=== PATIENT | female | born 1975 | race Asian ===

== ENCOUNTER 2018-10-11 19:50 | Inpatient (IN) | payer MEDICARE ==
[~2018-10-11] VITALS: Ht 162.6 cm; Wt 51.0 kg
--- NOTE | 2018-10-11 20:04 | NUR ---
PT IN BR AT THIS TIME.
--- NOTE | 2018-10-11 20:12 | NUR ---
PT [place] IS FROM [place]. STATES SHE WAS SEEN IN THE ED IN [place] TODAY AND WAS DISCHARGED BUT THEN THE VOICES IN HER HEAD GOT WORSE. CALM, PLEASANT AT THIS TIME. ERP WAS IN TO SEE PT, POC RV'WD WITH HER. WARM BLANKET PROVIDED.
--- NOTE | 2018-10-11 20:21 | NUR ---
LABS DRAWN, URINE SENT. BIBLE PROVIDED TO PT PER HER REQUEST.
[2018-10-11 20:26] LABS: BASOPHILS # (AUTO) 0.02 x10^3/uL (0-0.1); BASOPHILS % (AUTO) 1 % (0-1); EOSINOPHILS # (AUTO) 0.28 x10^3/uL (0-0.4); EOSINOPHILS % (AUTO) 6 % (1-7); LYMPHOCYTES # (AUTO) 0.95 x10^3/uL (1-3.4); LYMPHOCYTES % (AUTO) 21 % (22-44); MD NO; MEAN CORPUSCULAR HEMOGLOBIN 28.7 pg (27.0-34.8); MEAN CORPUSCULAR HGB CONC 32.5 g/dL (32.4-35.8); MEAN CORPUSCULAR VOLUME 88.2 fL (80-100); MEAN PLATELET VOLUME 7.2 fL (7.4-10.4); MONOCYTES # (AUTO) 0.54 x10^3/uL (0.2-0.8); MONOCYTES % (AUTO) 12 % (2-9); NEUTROPHILS # (AUTO) 2.65 x10^3/uL (1.8-6.8); NEUTROPHILS % (AUTO) 60 % (42-75); PLATELET COUNT 316 x10^3/uL (130-400); RED CELL DISTRIBUTION WIDTH 16.4 % (9.6-15.2)
[2018-10-11 20:37] LABS: ALANINE AMINOTRANSFERASE 17 U/L (12-78); ALBUMIN 3.8 g/dL (3.4-5.0); ANION GAP 6 mmol/L (5-15); CALCIUM 8.3 mg/dL (8.5-10.1); CHLORIDE 108 mmol/L (98-107); CREATININE 0.72 mg/dL (0.55-1.02)
[2018-10-11 20:40] LABS: SALICYLATE LEVEL < 1.7 mg/dL (2.8-20.0)
[2018-10-11 20:42] LABS: ALKALINE PHOSPHATASE 54 U/L (45-117); BILIRUBIN,TOTAL 0.4 mg/dL (0.2-1.0)
[2018-10-11 20:50] LABS: AMPHETAMINE SCREEN, URINE Negative (Negative); BARBITURATE SCREEN, URINE Negative (Negative); BENZODIAZEPINE SCREEN, URINE Negative (Negative); CANNABINOID SCREEN, URINE Negative (Negative); COCAINE SCREEN, URINE Negative (Negative); METHADONE SCREEN, URINE Negative (Negative); OPIATE SCREEN, URINE Negative (Negative)
--- NOTE | 2018-10-11 21:21 | NUR ---
PT TALKING WITH PSYCHIATRIST VIA TELE PSYCH IN ROOM AT THIS TIME. Addendum: 10/11/18 at 2333 by NOEL PT TALKING WITH FRIEND ON THE PHONE AT THIS TIME.
--- NOTE | 2018-10-11 23:33 | NUR ---
TOOTHBRUSH & TOOTHPASTE AND SNACKS PROVIDED TO PT. UPDATED PT ON POC.
--- NOTE | 2018-10-12 00:06 | NUR ---
RECEIVED REPORT FROM ISABELLA LOPEZ TO ASSUME CARE OF PT. AT THIS TIME.
[2018-10-12] MEDS ORDERED: LORazepam 1MG TABLET ONE ×2 (00:20→13:10)
--- NOTE | 2018-10-12 00:24 | NUR ---
PT. MEDICATED PER MAR FOR ANXIETY. PT. RESTING ON GURNEY AWAITING TELEPSYCH EVAL. PT. HAS BIBLE OPEN AND APPEARS TO BE READING IT. PT. DENIES OTHER NEEDS AT THIS TIME. ALL SAFETY MEASURES OBSERVED.
[2018-10-12] MEDS ORDERED: LORazepam 1MG TABLET PO ONE ×2 (00:30→13:30)
--- NOTE | 2018-10-12 01:18 | NUR ---
REPORT TO TELEPSYCH .
--- NOTE | 2018-10-12 02:53 | NUR ---
report of pt from esther Mccord and assuming care of pt at this time.
--- NOTE | 2018-10-12 03:00 | NUR ---
REPORT WAS GIVEN TO ISABELLA CHEUNG TO ASSUME CARE OF PT. ALL PT. BELONGINGS HAVE BEEN REMOVED AND PLACED INTO SECURED LOCKER IN 1 BAG. PT. MOVED TO ED 38 FOR SECURED ROOM/SITTER IN MASSE[place]. PT. VERY CALM/COOPERATIVE WITH STAFF. PT. HAD CT SCAN DONE.
--- NOTE | 2018-10-12 04:06 | NUR ---
report of pt to esther bentley. all questions answered.
[2018-10-12 04:27] VITALS: BP 106/72
[2018-10-12 07:57] VITALS: BP 117/74
[2018-10-12] MEDS ORDERED: NICOTINE 14MG/24 HR PATCH.TD24 ONE (13:10)
[2018-10-12] MEDS ORDERED: NICOTINE 14MG/24 HR PATCH.TD24 TD ONE (13:30)
[2018-10-13 14:06] LABS: ANA SCREEN NEGATIVE (Negative)
[2018-10-14 12:16] LABS: RAPID PLASMA REAGIN Nonreactive (Nonreactive)
== END 2018-10-12 14:23 | DRG 885 ==
LOC: ED 20:29 → EDIP 10-12 02:33 → 2N 10-12 04:16
PROVIDERS: ADMIT Family Medicine; ATTEND Family Medicine
DX: F23 Brief psychotic disorder (principal); R45.851 Suicidal ideations; F17.210 Nicotine dependence, cigarettes, uncomplicated
CPT/HCPCS: 36415; 70450; 80053; 80307; 82607; 84443; 84703; 85025; 86038; 86592; 99285; G0378